=== PATIENT | female | born 1990 | race American Indian/Alaskan Native ===

== ENCOUNTER 2020-01-26 15:53 | Emergency (ER) | payer SELFPAY ==
[2020-01-26 16:53] VITALS: BP 128/57
[2020-01-26 19:05] LABS: Basophils % (Auto) 0.3 % (0.0-1.8); Eosinophils # (Auto) 0.1 K/mm3 (0.0-0.4); Eosinophils % (Auto) 1.5 % (0.0-4.3); Hematocrit 31.6 % (30.3-42.9); Hemoglobin 9.9 gm/dl (10.1-14.3); Lymphocytes # (Auto) 2.3 K/mm3 (1.2-5.4); Lymphocytes % (Auto) 25.9 % (13.4-35.0); Mean Corpuscular HGB Conc 31 % (30-34); Monocytes # (Auto) 0.9 K/mm3 (0.0-0.8); Monocytes % (Auto) 9.6 % (0.0-7.3); Platelet Count 316 K/mm3 (140-440)
[2020-01-26 19:07] LABS: Mean Corpuscular Volume 61 fl (79-97); Red Cell Distribution Width 20.9 % (13.2-15.2)
[2020-01-26 19:10] LABS: Alanine Aminotransferase 8 units/L (7-56); Blood Urea Nitrogen 11 mg/dL (7-17); Calcium 9.1 mg/dL (8.4-10.2); Hemolysis Index 2
[2020-01-26 19:23] LABS: BUN/Creatinine Ratio 18
== END 2020-01-26 19:00 | disposition left against medical advice (07) ==
LOC: ED 15:53
DX: R10.9 Unspecified abdominal pain (principal); Z53.21 Procedure and treatment not carried out due to patient leaving prior to being seen by health care provider
CPT/HCPCS: 36415; 80053; 83690; 85025